=== PATIENT | female | born 1995 | race Caucasian/White ===

== ENCOUNTER 2022-11-11 09:21 | Outpatient (OUT) | payer OTHER, SELFPAY ==
[2022-11-11 10:02] LABS: Basophils Percent Auto 0.4 % (0.2-2.0); Eosinophils Absolute Auto 0.1 10^3/uL (0.0-0.7); Eosinophils Percent Auto 1.2 % (0.9-7.0); Hemoglobin 13.9 g/dL (12.0-16.0); Immature Granulocytes Abs Auto 0.03 10^3/uL (0.00-0.03); Immature Granulocytes Pct Auto 0.4 % (0.0-0.5); Lymphocytes Absolute Auto 2.5 10^3/uL (1.2-3.8); Lymphocytes Percent Auto 36.9 % (20.5-60.0); Mean Corpuscular HGB Conc 33.1 g/dL (29.9-35.2); Mean Corpuscular Hemoglobin 28.8 pg (26.7-34.0); Mean Corpuscular Volume 87.1 fL (81.0-99.0); Mean Platelet Volume 8.9 fL (9.5-13.5); Monocytes Absolute Auto 0.5 10^3/uL (0.3-0.8); Monocytes Percent Auto 6.9 % (1.7-12.0); Neutrophils Absolute Auto 3.6 10^3/uL (1.4-6.5); Neutrophils Percent Auto 54.2 % (43.0-75.0); Platelet Count 253 10^3/uL (150-450); Red Blood Count 4.82 10^6/uL (4.20-5.40); Red Cell Distribution Width 12.4 % (11.0-15.0); White Blood Count 6.7 10^3/uL (4.0-11.0)
[2022-11-11 10:45] LABS: Free T4 0.84 ng/dL (0.76-1.46)
[2022-11-11 10:51] LABS: Alanine Aminotransferase 16 U/L (14-59); Albumin Globulin Ratio 0.9; Albumin Level 3.7 g/dL (3.4-5.0); Alkaline Phosphatase 63 U/L (46-116); Anion Gap 10.5; Aspartate Amino Transferase 16 U/L (15-37); BUN Creatinine Ratio 16.2; Bilirubin Total 0.3 mg/dL (0.2-1.0); Calcium 8.7 mg/dL (8.5-10.1); Carbon Dioxide 25.4 mmol/L (21.0-32.0); Chloride 103 mmol/L (98-107); Estimated GFR (African America >60 (>=60); Estimated GFR (Non-African Ame >60 (>=60); Globulin 3.9 g/dL; Glucose 83 mg/dL (74-106); Potassium 3.9 mmol/L (3.5-5.1); Sodium 135 mmol/L (136-145); Thyroid Stimulating Hormone 1.661 uIU/mL (0.358-3.740); Total Protein 7.6 g/dL (6.4-8.2)
== END 2022-11-11 09:22 | disposition home or self-care (01) ==
LOC: LAB 09:24
PROVIDERS: PCP Family Medicine; Visit Provider Family Medicine
DX: R10.9 Unspecified abdominal pain (principal)
CPT/HCPCS: 36415; 80053; 83690; 84436; 84439; 84443; 84479; 85025

== ENCOUNTER 2023-12-21 08:17 | Outpatient (OUT) | payer OTHER, SELFPAY ==
[2023-12-21 08:53] LABS: Basophils Percent Auto 0.4 % (0.2-2.0); Eosinophils Percent Auto 0.6 % (0.9-7.0); Hematocrit 40.9 % (36.0-48.0); Hemoglobin 13.7 g/dL (12.0-16.0); Immature Granulocytes Abs Auto 0.02 10^3/uL (0.00-0.03); Immature Granulocytes Pct Auto 0.3 % (0.0-0.5); Lymphocytes Absolute Auto 2.5 10^3/uL (1.2-3.8); Lymphocytes Percent Auto 37.3 % (20.5-60.0); Mean Corpuscular HGB Conc 33.5 g/dL (29.9-35.2); Mean Corpuscular Volume 86.5 fL (81.0-99.0); Mean Platelet Volume 9.2 fL (9.5-13.5); Monocytes Absolute Auto 0.4 10^3/uL (0.3-0.8); Monocytes Percent Auto 6.2 % (1.7-12.0); Neutrophils Absolute Auto 3.7 10^3/uL (1.4-6.5); Neutrophils Percent Auto 55.2 % (43.0-75.0); Platelet Count 255 10^3/uL (150-450); Red Blood Count 4.73 10^6/uL (4.20-5.40); Red Cell Distribution Width 12.7 % (11.0-15.0); White Blood Count 6.7 10^3/uL (4.0-11.0)
[2023-12-21 10:52] LABS: Alanine Aminotransferase 19 U/L (14-59); Albumin Globulin Ratio 1.1; Albumin Level 3.7 g/dL (3.4-5.0); Alkaline Phosphatase 56 U/L (46-116); Anion Gap 12.7; Aspartate Amino Transferase 15 U/L (15-37); BUN Creatinine Ratio 17.5; Bilirubin Direct 0.1 mg/dL (0.0-0.2); Bilirubin Total 0.6 mg/dL (0.2-1.0); C Reactive Protein <0.50 mg/dL (<=0.50); Calcium 8.9 mg/dL (8.5-10.1); Carbon Dioxide 27.3 mmol/L (21.0-32.0); Chloride 104 mmol/L (98-107); Creatine Kinase 80 U/L (26-192); Estimated GFR (African America >60 (>=60); Estimated GFR (Non-African Ame >60 (>=60); Free T3 2.72 pg/mL (2.18-3.98); Globulin 3.5 g/dL; Glucose 80 mg/dL (74-106); Sodium 140 mmol/L (136-145); Thyroid Stimulating Hormone 2.101 uIU/mL (0.358-3.740); Total Protein 7.2 g/dL (6.4-8.2)
[2023-12-21 11:39] LABS: Estimated Average Glucose 91 mg/dL; Glycohemoglobin A1C 4.8 % (4.5-6.2)
[2023-12-21 12:37] LABS: Free T4 0.91 ng/dL (0.76-1.46)
[2023-12-22 07:10] LABS: Cytomegalovirus (CMV) Ab, IgM 67.2 AU/mL (0.0-29.9)
[2023-12-22 10:11] LABS: Lead, Blood (Adult) <1.0 ug/dL (0.0-3.4)
[2023-12-22 12:09] LABS: Homocyst(e)ine 6.7 umol/L (0.0-14.5)
[2023-12-22 14:10] LABS: EBV Ab VCA, IgM <36.0 U/mL (0.0-35.9); EBV Nuclear Antigen Ab, IgG >600.0 U/mL (0.0-17.9); Lyme Total Antibody CIA Negative (Negative)
[2023-12-22 15:10] LABS: Cortisol - AM 15.4 ug/dL (6.2-19.4)
[2023-12-22 16:10] LABS: Deamidated Gliadin Abs, IgA 5 units (0-19); Deamidated Gliadin Abs, IgG 2 units (0-19); Endomysial Antibody IgA Negative (Negative); Immunoglobulin A, Qn, Serum 215 mg/dL (87-352); Thyroglobulin Antibody <1.0 IU/mL (0.0-0.9); Thyroid Peroxidase (TPO) Ab 14 IU/mL (0-34); t-Transglutaminase (tTG) IgA <2 U/mL (0-3); t-Transglutaminase (tTG) IgG <2 U/mL (0-5)
[2023-12-22 17:09] LABS: Antinuclear Antibodies, IFA Positive (.)
[2023-12-26 05:08] LABS: Mercury, Whole Blood <1.0 ug/L (0.0-14.9)
== END 2023-12-21 08:18 | disposition home or self-care (01) ==
LOC: LAB 08:17
DX: Z13.21 Encounter for screening for nutritional disorder (principal); R53.83 Other fatigue; K21.9 Gastro-esophageal reflux disease without esophagitis; K58.1 Irritable bowel syndrome with constipation
CPT/HCPCS: 36415; 80048; 80076; 82306; 82533; 82550; 82607; 82728; 82746; 82784; 83036; 83090; 83540; 83655; 83825; 84255; 84439; 84443; 84481; 85025; 86038; 86140; 86231; 86258; 86364; 86376; 86618; 86644; 86645; 86664; 86665; 86800